=== PATIENT | male | born 1995 | race Caucasian/White ===

== ENCOUNTER 2021-12-18 11:06 | Emergency (ER) | payer SELFPAY ==
[2021-12-18 12:12] LABS: ANION GAP 14.1 mmol/L (5-15); CHLORIDE,CL 102 mmol/L (98-107); SODIUM,NA 140 mmol/L (136-145)
[2021-12-18 12:28] LABS: ESTIMATED GFR 127 mL/min (>=60)
[2021-12-18 13:18] VITALS: BP 127/79; PULSE 95
== END 2021-12-18 13:40 | disposition home or self-care (01) ==
LOC: KA.ED 11:06
DX: M25.512 Pain in left shoulder (principal); R20.2 Paresthesia of skin
CPT/HCPCS: 36415; 80053; 84484; 85025; 93005; 93010; 99284